=== PATIENT | female | born 1935 | race Caucasian/White ===

== ENCOUNTER 2016-09-05 05:24 | Day surgery (SDC) | payer OTHER ==
[~2016-09-05] VITALS: Ht 154.9 cm; Wt 49.0 kg
[~2016-09-05 05:24] MED LIST: CALCIUM + VITA1 EAC2 PO; CLARITIN,ALAVAR10 MG PO; HYDRALAZINE HCL25 MG PO; HYZAAR 100-21 TABLET PO; LO-DOSE ASPIRIN81 M2 PO; METOPROLOL SUCC50 MG PO; MONTELUKAST SOD10 MG PO; OMEPRAZOLE20 MG PO; PRAVASTATIN SOD40 MG PO
[2016-09-05 05:55] VITALS: BP 132/72
[2016-09-05 06:40] LABS: HEMATOCRIT 44.6 % (36.0-46.0); MCH 29.3 PG (29.0-34.0); MCHC 32.5 G/DL (30.0-36.0); MCV 90.1 FL (83-99); MEAN PLAT.VOLUME 10.7 uM^3 (9.5-12.4); PLATELET COUNT 179 K/uL (156-360); RBC DIS.WIDTH-CV 13.3 % (11.8-14.6); RBC DIS.WIDTH-SD 44.1 % (39-53); RED BLOOD COUNT 4.95 M/uL (3.80-5.20); WHITE BLOOD COUNT 5.9 K/uL (4.1-10.2)
[2016-09-05 07:02] LABS: ANION GAP 7 MEQ/L (2-14); CHLORIDE 109 MEQ/L (99-109); POTASSIUM 3.9 MEQ/L (3.7-5.4); SAMPLE HEMOLYSIS CHECK 0; SAMPLE ICTERIC CHECK 0; SAMPLE LIPEMIA CHECK 0; SODIUM 144 MEQ/L (136-147); TOTAL BILIRUBIN 0.9 MG/DL (0.0-1.0)
[2016-09-05 07:08] LABS: ALKALINE PHOSPHATASE 58 IU/L (3-129); GFR ESTIMATE (CALCULATED) > 59 mL/min/; GLUCOSE 112 mg/dL (70-99); UREA NITROGEN (BUN) 11 mg/dL (9-23)
[2016-09-05 09:15] VITALS: BP 105/51
[2016-09-05 10:15] VITALS: BP 95/53
== END 2016-09-05 10:20 | disposition home or self-care (01) ==
LOC: SDC 05:24
PROVIDERS: Ophthalmology
PROC: 08B53ZZ Excision of Left Vitreous, Percutaneous Approach (ICD-10-PCS; principal; 2016-09-05)
PROC: 08QF3ZZ Repair Left Retina, Percutaneous Approach (ICD-10-PCS; 2016-09-05)
DX: H33.22 Serous retinal detachment, left eye (principal); I10 Essential (primary) hypertension; I25.10 Atherosclerotic heart disease of native coronary artery without angina pectoris; J45.909 Unspecified asthma, uncomplicated; K21.9 Gastro-esophageal reflux disease without esophagitis; Z88.2 Allergy status to sulfonamides; Z87.891 Personal history of nicotine dependence; Z95.1 Presence of aortocoronary bypass graft
CPT/HCPCS: 80053; 85027; 93005; J0690; J1100; J2405; J2795; J3010; J3300